=== PATIENT | female | born 1990 | race Caucasian/White ===

== ENCOUNTER 2021-06-28 00:12 | Emergency (ER) | payer SELFPAY ==
[~2021-06-28] VITALS: Ht 162.6 cm; Wt 56.2 kg
[2021-06-28 00:20] VITALS: BP_SYST 114
[2021-06-28] MEDS ORDERED: ONDANSETRON HCL 4 MG/2 ML VIAL IVP ONE (00:45)
[2021-06-28 01:00] LABS: BILIRUBIN,URINE NEGATIVE (NEGATIVE); BLOOD, URINE 3+ (NEGATIVE); CLARITY/URINE CLEAR (CLEAR); COLOR,URINE YELLOW (YELLOW); GLUCOSE,URINE NEGATIVE (NEGATIVE); KETONES,URINE NEGATIVE (NEGATIVE); LEUKOCYTE ESTERASE ,URINE TRACE (NEGATIVE); NITRITE, URINE NEGATIVE (NEGATIVE); PH,URINE 6.5 (5.0-8.0); PROTEIN URINE TRACE (NEGATIVE); UROBILINOGEN,URINE 0.2 (0.2-1.0)
--- NOTE | 2021-06-28 01:05 | NUR ---
Patient to ER bed 4 to gown for evaluation. Side rails up. Report given to Hector SEBASTIAN.
--- NOTE | 2021-06-28 01:05 | NUR ---
Pt c/o nausea and generalized abdominal pain that radiates to her back x 2 weeks. Pt states that she was seen at an urgent care this past Friday and was Dx with UTI. Denies urinary frequency or hematuria.
--- NOTE | 2021-06-28 01:08 | NUR ---
Dr. Smith at bedside.
[2021-06-28 01:14] LABS: CREATININE 0.67 mg/dL (0.55-1.30); POTASSIUM 3.5 mmol/L (3.5-5.1)
[2021-06-28 01:16] LABS: BASOPHILS % (AUTO) 0.3 % (0.0-2.0); HEMATOCRIT 34.7 % (36-48); HEMOGLOBIN 12.1 g/dL (12.0-16.0); LYMPHOCYTES # (AUTO) 0.9 K/uL (1.0-5.5); LYMPHOCYTES % (AUTO) 8.5 % (20.5-51.5); MEAN CORPUSCULAR HEMOGLOBIN 31 pg (27-31); MEAN CORPUSCULAR HGB CONC 35 % (32-36); MEAN CORPUSCULAR VOLUME 89 fL (79.0-98.0); MONOCYTES # (AUTO) 1.4 K/uL (0.0-1.0); MONOCYTES % (AUTO) 12.8 % (1.7-9.3); NEUTROPHILS # (AUTO) 8.7 K/uL (1.8-7.7); NEUTROPHILS % (AUTO) 78.4 % (40.0-70.0); PLATELET COUNT (AUTO) 222 K/uL (130-430); RED BLOOD CELL COUNT(AUTO) 3.88 MIL/uL (4.2-6.2); RED CELL DISTRIBUTION WIDTH 12.8 % (9.0-15.0); WHITE BLOOD COUNT (AUTO) 11.1 K/uL (4.8-10.8)
[2021-06-28 01:24] LABS: BACTERIA,URINE FEW /HPF (None Seen); RBC,URINE 0-3 /HPF (0-3); WBC,URINE 0-3 /HPF (0-3)
[2021-06-28 01:28] LABS: ALBUMIN 3.2 g/dL (3.4-4.8); TOTAL BILIRUBIN 0.2 mg/dL (0.0-1.0)
[2021-06-28] MEDS ORDERED: ONDANSETRON 4 MG ODT TAB ONE (02:39)
--- NOTE | 2021-06-28 02:40 | NUR ---
Unsuccessful PIV attempt and pt c/o nausea. Dr. Smith notified.
[2021-06-28] MEDS: NACL 0.9% 1,000 ML IV ONE (02:45)
[2021-06-28] MEDS: KETOROLAC TROMETHAMINE 30 MG VIAL IVP ONE (02:45)
--- NOTE | 2021-06-28 02:45 | NUR ---
Zofran 8 mg ODT given per DIANA Smith.
[2021-06-28] MEDS ORDERED: CIPR500T5 PO (03:26)
[2021-06-28] MEDS: cefTRIAXone 1 GM in D5W 50 ML IV ONE (03:30)
[2021-06-28 04:06] VITALS: BP_SYST 116
--- NOTE | 2021-06-28 04:06 | NUR ---
Patient given written and verbal discharge instructions and verbalizes understanding. ER MD discussed with patient the results and treatment provided. Patient in stable condition. ID arm band removed. IV catheter removed intact and dressing applied, no active bleeding. Rx of CIPRO given. Patient educated on pain management and to follow up with PMD. Pain Scale . Opportunity for questions provided and answered. Medication side effect fact sheet provided.
[2021-06-29] MEDS: ONDANSETRON 4 MG ODT TAB PO ONE (05:16)
== END 2021-06-28 04:06 | disposition home or self-care (01) ==
LOC: SED 00:12
DX: N39.0 Urinary tract infection, site not specified (principal); R10.32 Left lower quadrant pain
CPT/HCPCS: 36415; 74176; 76376; 80053; 81000; 81025; 83605; 83690; 84703; 85025; 87040; 87086; 96361; 96374; 99284; J1885; J2405; J7030; Q0162